=== PATIENT | female | born 1995 | race Two or more races ===

== ENCOUNTER 2016-12-28 10:05 | Observation (INO) | payer MEDICAID ==
[2016-12-28] MEDS ORDERED: PRENCAP61 PO (10:22)
== END 2016-12-28 11:25 | disposition home or self-care (01) | DRG 566 ==
LOC: LDRP 10:05
PROVIDERS: ADMIT Obstetrics & Gynecology; ATTEND Obstetrics & Gynecology
DX: O48.0 Post-term pregnancy (principal); Z3A.40 40 weeks gestation of pregnancy
CPT/HCPCS: 59025; 76818; 81002; G0378